=== PATIENT | female | born 1940 | race Caucasian/White ===

== ENCOUNTER 2024-10-26 17:00 | Inpatient (IN) | payer OTHER, SELFPAY ==
[2024-10-26] VITALS (8 sets, daily range): BP systolic 117–150; BP diastolic 37–83; BMI 26.0
--- NOTE | 2024-10-26 11:20 | W.PN.CARDCBS ---
Today's Communication / Plan
-
Pacemaker implant
CXR post op
monitor on tele for 24h post implant
incision check at [facility]
Impression / Plan
-
This is the H&P summary.
Full H&P scanned into chart.
PCP: Mckenzie Perez DO
CDY: Gonzalez Pruett MD
84 y/o female, PMH HTN (no meds), HLD, statin intol d/t liver fibrosis, NAFLD, DM, Carotid artery stenosis, mild non obstructive CAD on non invasive imaging, remove DVT off anticoagulation, GERD, chronic interstitial lung disease, ROSSI.
Recent history includes several episodes of unexplained syncope, and an outpt monitor was placed by PCP. This was on pt at the time of arrival to ER.
She presented to [facility] ER with recurrent syncope with a fall, and found to be in 3rd deg AVG w/escape in the 30s. CT head/spine normal, right hip and pelvis normal. She landed on her right side and has residual pain to her right hip/lower back. She is
under tremendous stress with her 's critical illness and multiple recent hospitalization. Transferred for PPM implant today.
Echo 10/21/24- mod-sev LVH w/septal thickening, nml LVSF, EF 55-60%, no WMA, mod AR, no other valvular disease.
IMPRESSION:
Recurrent syncope
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
Mod AR
LVH
HTN, medically managed
HLD, statin intolerant
DM, diet controlled
Carotid artery stenosis (Mild <40% on multiple imaging tests)
Remote LE DVT
Chronic interstitial lung disease
GERD
Iron deficiency anemia
Liver fibrosis
NAFLD
Lumbar SS w/neurogenic claudication, radiculopathy
Increased stress with critically ill
PLAN:
84 y/o with recurrent syncope and fall, found to be in 3rd Deg AVB w/junctional escape in 30s.
plan for dc pacemaker implant today
echo w/nml LVSF, preserved EF, no sig valvular disease
BP low 100s at [facility]- continue to monitor, stable off meds
No statin d/t liver fibrosis/NAFLD
Continue daily aspirin for remote DVT, BARRY.
Incision check at [facility] at end of week as scheduled.
monitor on tele for 24h post implant
Progress Note - Income Tax Adjuster
Subjective
Date of Service: October 26, 2024
--- NOTE | 2024-10-26 15:33 | ITS.CL.PACE ---
Histopath Tech - Pacemaker Implant
Pacemaker Implant
Procedure Report:
PACEMAKER IMPLANT REPORT
Primary Care Physician: Dr. Catie Burciaga
Date of Procedure: October 26, 2024
Procedure:
1: Dual chamber pacemaker implantation with fluoroscopic guidance
Indication/Diagnosis:
1: Non-reversible symptomatic bradycardia due to: third degree AV block.
History: The patient is an 84-year-old woman with past medical history of hypertension who presents with recurrent unexplained syncope and third-degree AV block. Recent echo shows normal LV systolic function with no significant valvular disease.
She is referred for dual-chamber pacemaker placement.
Antibiotic: Vancomycin 1 g IV
Sedation: Conscious sedation as per anesthesia staff
Description of Procedure: After informed consent was obtained, 'time out' was called and confirmed, the patient was prepped and draped in a sterile fashion. Lidocaine with epinephrine was used for local anesthesia. Central venous access was
obtained via subclavian venopuncture after a venogram from the left arm confirmed subclavian patency. An incision was made along the left chest and a pre-pectoral pocket was formed. Using a Seldinger technique and peel-away sheaths, the pacing
leads were placed under fluoroscopic guidance. Once testing (see below) showed adequate and stable function, the leads were secured using the suture sleeves. The pocket was liberally irrigated with antibiotic solution. The leads were connected to
the generator header and the leads and generator were placed within the pocket. Fluoroscopy confirmed stable lead position. The pocket was closed in the typical fashion.
IMPLANTS:
Company: [employer] PM [id number], SN: [id number] left Pectoral
RA: [employer] LPA 1231/46, SN: [id number], RAA
RV: [employer] L[employer] 1231/52, SN: [id number], RV apical septum
DEVICE TESTING:
Sensing: RA 2.1 mV, RV 6.5 mV
Capture: RA 1.25 V@0.4ms, RV 0.75 V@0.4ms
Ohms: RA 480, RV 840
FINAL PROGRAMMING
Mansoor Pacing: DDDR 60 - 120bpm
Complications: None.
Fluoroscopy Time (min): 4.7
Radiation Dose (mGy): 16.46
DAP (Gy.cm2): 182
CONCLUSIONS:
1: Successful implant of dual chamber permanent pacemaker
RECOMMENDATIONS:
1. Routine post-op care (tele, CXR, arm sling).
2. In-Office wound check within 7 days.
3. Office interrogation within 4 weeks.
--- NOTE | 2024-10-26 18:00 | PTCARENOTE ---
Patient received from CCL s/p LCW ppm placement. NSR w/occasional A-pacing noted via cm, SaO2 @ 98% on RA. Procedural site cdi, no bleeding noted. Dr. Gonzalez to bedside, confirmed to nursing does not want an arm sling for patient. Patient updated to
plan of care for the evening, in agreement. See work list for full assessment and interventions performed.
[2024-10-26] MEDS: VANCOCIN 200 IV (18:11)
[2024-10-26] MEDS: AZACTAM 2000 MG IV (18:11)
[2024-10-26] MEDS: STERILE WATER FOR INJECTION 10 ML IV (18:11)
[2024-10-26] MEDS: TYLENOL 650 MG PO (18:11)
--- NOTE | 2024-10-26 20:00 | PTCARENOTE ---
assumed care of pt from previous RN. pt A&Ox4, resting in chair at time of assessment. SR on tele-monitor. s/p PPM placement. POX 99% on RA. abd s/n, +BS. pt confirms passing gas. voiding clear, yellow colored urine. PIV intact. L anterior chest
wall PPM site CDI. pt assisted to bathroom then into bed by this RN. plan of care discussed w/ pt, pt in agreement. see worklist for complete nursing assessment, interventions, VS, and I&Os.
[2024-10-26] MEDS: PEPCID 40 MG PO (20:11)
[2024-10-26] MEDS: PROTONIX 40 MG PO (20:12)
--- NOTE | 2024-10-27 | PTCARENOTE ---
assessment remains unchanged. VSS. no c/o pain
[2024-10-27 00:03] VITALS: BP 130/56
[2024-10-27] MEDS: TYLENOL 650 MG PO ×2 (02:11→07:35)
[2024-10-27 02:16] VITALS: BP 166/41
[2024-10-27 02:21] VITALS: BP 161/46
[2024-10-27 02:44] LABS: Hematocrit 42.7 % (37.0-47.0); Hemoglobin 14.5 g/dL (12.0-16.0); Mean Corp Hgb Conc. 34.0 g/dL (33.0-37.0); Mean Corpuscular Volume 91.6 fL (81.0-99.0); Platelet Count 180 10^3/uL (130-400); Red Cell Dist. Width 13.2 % (11.5-14.5)
--- NOTE | 2024-10-27 03:00 | PTCARENOTE ---
no acute changes. VSS.
[2024-10-27 06:57] LABS: Blood Urea Nitrogen 13 mg/dl (7-17); Calcium 9.1 mg/dl (8.4-10.2); Carbon Dioxide 25 mmol/L (22-30); Chloride 109 mmol/L (98-107); Estimated Creatinine Clearance 50 ml/min; Glucose 95 mg/dl (70-99); Magnesium 2.0 mg/dl (1.6-2.3); Potassium 4.6 mmol/L (3.5-5.1); Sodium 138 mmol/L (135-145); eGFR > 60.00
[2024-10-27 07:32] VITALS: BP 142/43
[2024-10-27] MEDS: PROTONIX 40 MG PO (07:35)
[2024-10-27] MEDS: LOW STRENGTH ASPIRIN 81 MG PO (07:35)
--- NOTE | 2024-10-27 07:59 | PTCARENOTE ---
Received pt from trim machine adjuster RN; pt AAOX3 and resting comfortably in chair; A-paced on monitor and VSS; Lungs diminished; positive bowel sounds; pt voiding yellow urine; no edema noted; palpable pulses throughout; surgical sites C/D/I; see nursing
documentation for further details.
--- NOTE | 2024-10-27 09:14 | W.PN.CARDCBS ---
Addendum entered and electronically signed by Jovanni Nuñez MD 10/27/24 12:03:
I saw and examined the patient.
The Hip Hop Dancer's note was reviewed and I agree with the note.
Comment:
GEN: No distress, awake, Ox3
HEENT: supple, anicteric, mmm
LUNGS: CTA, no wheezes/rales
CV: Reg, S1/S2, 1/6 syst LSB, no murmur
ABD: soft, BS+, NT/ND
EXT: No edema
NEURO: Gross non-focal
SKIN: pacer site stable
PLan:
Overall doing well status post permanent pacemaker. Chest x-ray stable with no pneumothorax.
Will follow-up with [facility] in 2 days in office
Hemoglobin 14.5
Original Note:
Today's Communication / Plan
-
post DC PPM
stable for d/c home today
Impression / Plan
-
This is the H&P summary.
Full H&P scanned into chart.
PCP: Mckenzie Perez DO
CDY: Gonzalez Pruett MD
84 y/o female, PMH HTN (no meds), HLD, statin intol d/t liver fibrosis, NAFLD, DM, Carotid artery stenosis, mild non obstructive CAD on non invasive imaging, remove DVT off anticoagulation, GERD, chronic interstitial lung disease, ROSSI.
Recent history includes several episodes of unexplained syncope, and an outpt monitor was placed by PCP. This was on pt at the time of arrival to ER.
She presented to [facility] ER with recurrent syncope with a fall, and found to be in 3rd deg AVG w/escape in the 30s. CT head/spine normal, right hip and pelvis normal. She landed on her right side and has residual pain to her right hip/lower back. She is
under tremendous stress with her 's critical illness and multiple recent hospitalization. Transferred for PPM implant today.
Echo 10/21/24- mod-sev LVH w/septal thickening, nml LVSF, EF 55-60%, no WMA, mod AR, no other valvular disease.
IMPRESSION:
Recurrent syncope
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
Mod AR
LVH
HTN, medically managed
HLD, statin intolerant
DM, diet controlled
Carotid artery stenosis (Mild <40% on multiple imaging tests)
Remote LE DVT
Chronic interstitial lung disease
GERD
Iron deficiency anemia
Liver fibrosis
NAFLD
Lumbar SS w/neurogenic claudication, radiculopathy
Increased stress with critically ill
PLAN:
post DC PPM 10/26/24 Dr. Gonzalez
site stable with steri strips, old drainage noted, no HT
tele Apaced appropriately, device interrogated this am
CXR no PTX, leads in good position
echo w/nml LVSF, preserved EF, no sig valvular disease
No statin d/t liver fibrosis/NAFLD
Continue daily aspirin for remote DVT, BARRY.
Activity restrictions reviewed
C&DB, oob ambulate
Incision check at [facility] Friday
stable for d/c home
Progress Note - System Analyst
Subjective
Date of Service: October 27, 2024
denies cp, sob, mild inc pain
Objective
Labs:
10/27/24 02:34
10/27/24 05:50
Labs
Hgb 14.5 g/dL (12.0-16.0) 10/27/24 02:34
Hct 42.7 % (37.0-47.0) 10/27/24 02:34
Plt Count 180 10^3/uL (130-400) 10/27/24 02:34
Sodium 138 mmol/L (135-145) 10/27/24 05:50
Potassium 4.6 mmol/L (3.5-5.1) 10/27/24 05:50
BUN 13 mg/dl (7-17) 10/27/24 05:50
Creatinine 0.6 mg/dL (0.6-1.0) 10/27/24 05:50
Glucose 95 mg/dl (70-99) 10/27/24 05:50
Vital Signs and I&O:
Vital Signs
Temp Pulse Resp BP Pulse Ox
97.5 F 65 16 142/43 100
10/27/24 07:37 10/27/24 07:32 10/27/24 07:37 10/27/24 07:32 10/27/24 08:13
Vital Signs
Temp Pulse Resp BP Pulse Ox
97.5 F 65 16 142/43 100
10/27/24 07:37 10/27/24 07:32 10/27/24 07:37 10/27/24 07:32 10/27/24 08:13
Intake & Output
10/25/24 10/26/24 10/27/24 10/28/24
06:59 06:59 06:59 06:59
Intake Total 480 / 480
Output Total 250 / 250
Balance 230 / 230
Physical Exam
Physical Exam
NAD< AOX3
S1, S2, RRR
LLL crackles ? atelectasis, non labored, no wheeze
SNTND bsx4
L CW site steri strips intact with some scant old drainage, no HT
No LE edema
[2024-10-27 11:08] VITALS: BP 112/53
--- NOTE | 2024-10-27 11:17 | PTCARENOTE ---
Assessment unchanged; NSR on monitor and VSS; pt resting comfortable in chair awaiting discharge.
--- NOTE | 2024-10-27 12:56 | CM ---
spoke to pt in room, she is prev indep, lives with her husb in a 1 story home with a ramp. she has a walker at home to use if needed. she enies any dc planning needs. plan is for dc today.
--- NOTE | 2024-10-27 12:58 | W.DS.TRANS ---
DC Summary - Early Childhood Assistant
-
Discharge Instructions:
Discharge Diagnosis/Procedures Pacemaker implant
Diet Low Cholesterol,Diabetic, Carb Controlled
Driving Restrictions No driving for 1 week
Bathing Restrictions OK to Shower
Instructions:
Stand-Alone Forms: DC Inst - Implanted Device
Changes to Home Medications: No
Discharge Medications:
DC Medications w/original date entered in [employer]
albuterol sulfate 90 mcg/actuation aerosol inhaler 2 puff inhalation Q6H PRN wheezing/dyspnea 10/26/24
aluminum hydrox-magnesium carb 254 mg-237.5 mg/5 mL oral suspension (Gaviscon Extra Strength) 5 ml PO TID PRN indigestion/bloating 10/26/24
aspirin 81 mg chewable tablet 81 mg PO DAILY 10/26/24
calcium 600 mg (as carbonate)-vitamin D3 5 mcg (200 unit) tablet 1 tab PO DAILY 10/26/24
carboxymethylcellulose 0.5 %-glycerin 0.9 % eye drops 1 drp BOTH EYES BID PRN dry eye 10/26/24
cholecalciferol (vitamin D3) 50 mcg (2,000 unit) capsule 50 mcg PO DAILY 10/26/24
coenzyme Q10 200 mg capsule 200 mg PO DAILY 10/26/24
cranberry extract 650 mg capsule 650 mg PO BID 10/26/24
docusate sodium 100 mg capsule 100 mg PO BIDPRN PRN constipation 10/26/24
famotidine 40 mg tablet 40 mg PO HS 10/26/24
fexofenadine 180 mg tablet 180 mg PO DAILYPRN PRN allergies 10/26/24
fluticasone propionate 50 mcg/actuation nasal spray,suspension 2 spray intranasal DAILYPRN PRN allergies 10/26/24
magnesium oxide 250 mg PO DAILY 10/26/24
meloxicam 15 mg tablet 15 mg PO DAILY 10/26/24
olopatadine 0.7 % eye drops 1 drp ophthalmic (eye) DAILYPRN PRN dry eye 10/26/24
pantoprazole 40 mg tablet,delayed release 40 mg PO BID 10/26/24
potassium gluconate 595 mg (99 mg) tablet 595 mg PO BID 10/26/24
vitamin E mixed 400 unit tablet 400 unit PO DAILY 10/26/24
Home Medication Changes
Pending Results: No
== END 2024-10-27 14:33 | disposition home or self-care (01) | DRG 244 ==
LOC: CVICU 17:00
PROVIDERS: Nurse Practitioner; ADMITTING PHYSICIAN Internal Medicine Interventional Cardiology
PROC: 0JH606Z Insertion of Pacemaker, Dual Chamber into Chest Subcutaneous Tissue and Fascia, Open Approach (ICD-10-PCS; 2024-10-26)
PROC: 02HK3JZ Insertion of Pacemaker Lead into Right Ventricle, Percutaneous Approach (ICD-10-PCS; 2024-10-26)
PROC: 02H63JZ Insertion of Pacemaker Lead into Right Atrium, Percutaneous Approach (ICD-10-PCS; 2024-10-26)
DX: I44.2 Atrioventricular block, complete (principal); R00.1 Bradycardia, unspecified; I35.1 Nonrheumatic aortic (valve) insufficiency; I10 Essential (primary) hypertension; E78.5 Hyperlipidemia, unspecified; E11.9 Type 2 diabetes mellitus without complications; K21.9 Gastro-esophageal reflux disease without esophagitis; D50.9 Iron deficiency anemia, unspecified; K74.00 Hepatic fibrosis, unspecified; K76.0 Fatty (change of) liver, not elsewhere classified; M48.062 Spinal stenosis, lumbar region with neurogenic claudication; I65.29 Occlusion and stenosis of unspecified carotid artery; Z86.718 Personal history of other venous thrombosis and embolism
CPT/HCPCS: 33208; 71045; 80048; 83735; 85027; 93005; C1785; C1898; Q9967